=== PATIENT | female | born 1965 | race Caucasian/White ===

== ENCOUNTER 2016-10-01 09:09 | Day surgery (SDC) | payer OTHER ==
[~2016-10-01] VITALS: Ht 167.6 cm; Wt 90.7 kg
[~2016-10-01 09:09] MED LIST: 0.9% Sodium Chloride 1,000 ML IV PRN; BUPR150T8 PO; FLUT12AE8 IH; LORC10TA PO; MONT10TA23 PO; Sodium Chloride LOK Flush 10 mL Syringe IV PRN; fentaNYL-PF 50 mCg/mL 2 mL Inj IVPUSH PRN
[2016-10-01 10:10] VITALS: BP 135/99; PULSE 72; RESP 14; O2SAT 100
[2016-10-01] MEDS ORDERED: LEVO5TAB29 PO (10:15)
[2016-10-01] MEDS ORDERED: MONT10TA20 PO (10:15)
[2016-10-01] MEDS ORDERED: ESOM40CA53 PO (10:15)
[2016-10-01 11:26] VITALS: BP 124/72; PULSE 59; RESP 16; O2SAT 98
--- NOTE | 2016-10-01 11:26 | PCM.ENDCOL ---
Colonoscopy Date of Service: Oct 01, 2016 Physician Hernan Vail MD Pre Procedure Diagnosis: Screening Post Procedure Dx & Findings: Polyp hemorrhoids diverticulosis Procedure Colonoscopy PROCEDURE IN DETAIL: Prep adequate Withdrawal time 16 minutes After unremarkable rectal examination the Olympus video colonoscope was inserted patient's anal canal and was advanced to cecum. Landmarks were identified including the ileocecal valve and appendiceal orifice. Scope was withdrawn systematically. Visualized colonic mucosa showed healthy shiny mucosa with normal healthy-appearing vasculature. In the ileocecal valve, there was a 1 mm polyp which was removed completely using cold forceps. Patient had multiple diverticula mostly small cluster within the sigmoid colon but isolated diverticuli also found up to the transverse colon. In the rectum retroflexion was done which showed hemorrhoids. Anal canal was inspected carefully on the way out and hemorrhoids noted. Impression Polyp 1 status post complete removal Diverticuli Hemorrhoids Recommendation Repeat colonoscopy 5 years Diverticular diet Presedation Assessment Risks and Benefits Informed consent was obtained from the patient after all risks and benefits including but not limited to drug reaction, infection, pain, bleeding, perforation, as well as alternatives were discussed. Patient monitoring Continuous pulse oximetry, cardiac monitoring, blood pressure monitoring, IV access, and oxygen at 2L per nasal cannula. Periprocedural Fentanyl: Fentanyl 75mcg Incrementally Midazolam: Midazolam 3mg Incrementally Complications There were no periprocedural complications identified. Post Procedure Plan Post Procedure Recommendations 1. Restrict activities today. 2. Resume normal activities in the morning. 3. Resume medications. 4. Patient informed of normal post procedure side effects as bloating, drowsiness, blood streaking in the stool. 5. average risk CRCS. If colon polyps come back as: -Hyperplastic- can repeat colonoscopy in 10 years -Tubular adenoma- repeat colonoscopy in 5 years -Tubulovillous/villous adenoma- repeat colonoscopy in 3 years -If any dysplasia- return to clinic as soon as possible 6. Please don't hesitate to call me with any questions. Hernan Vail MD Oct 01, 2016 11:26
[2016-10-01 11:37] VITALS: BP 124/72; PULSE 62; RESP 16; O2SAT 99
[2016-10-01 11:48] VITALS: BP 121/77; PULSE 66; RESP 16; O2SAT 98
--- NOTE | 2016-10-05 14:54 | PATH ---
SURGICAL PATHOLOGY Attending Physician:Hernan Vail M.D. CASE STATUS: Signed Out PATIENT NAME: IONA BLANCHARD PID: [id number] : 1965 DATE COLLECTED:10/01/2016 22:38 SPECIMEN: Colon, Polyp CLINICAL HISTORY: 1). ASCENDING POLYP FINAL DIAGNOSIS: 1.ASCENDING COLON, POLYP, BIOPSY: BENIGN LYMPHOID AGGREGATE. NEGATIVE FOR DYSPLASIA AND MALIGNANCY. ADDITIONAL LEVELS WERE EXAMINED. ICD10 K635. GROSS DESCRIPTION: Received in formalin, labeled with the patient' s name and "ascending polyp", is one fragment of schneider, soft tissue measuring 0.3 x 0.2 x 0.1 cm. The fragment is totally submitted in one cassette. [id number]) MICRO DESCRIPTION: See diagnosis. ICD-9 CODES: CPT CODES: 1: 77268 Electronically Signed Out Griselda Branch MD [facility] Pathology [facility] [address], [place] [address] Technical component performed at [facility], [facility] [address], [place], [address]
== END 2016-10-01 23:59 | disposition home or self-care (01) ==
LOC: END 09:09
PROVIDERS: ATTEND Internal Medicine
DX: Z12.11 Encounter for screening for malignant neoplasm of colon (principal); K63.5 Polyp of colon; K57.30 Diverticulosis of large intestine without perforation or abscess without bleeding; K64.8 Other hemorrhoids; Z79.899 Other long term (current) drug therapy; Z88.6 Allergy status to analgesic agent; Z88.1 Allergy status to other antibiotic agents; Z88.8 Allergy status to other drugs, medicaments and biological substances
CPT/HCPCS: 45380; 99153; G0500; J2250; J3010; J7030